=== PATIENT | male | born 1975 | race Two or more races ===

== ENCOUNTER 2016-11-24 23:52 | Emergency (ER) | payer OTHER ==
[~2016-11-24] VITALS: Ht 185.4 cm; Wt 190.5 kg
[2016-11-25 00:10] VITALS: BP 140/86
[2016-11-25] MEDS ORDERED: KETOROLAC TROMETH 60MG/2ML VIAL IM ONE (03:15)
== END 2016-11-25 03:19 | disposition home or self-care (01) ==
LOC: ER 23:52
DX: S93.401A Sprain of unspecified ligament of right ankle, initial encounter (principal); X58.XXXA Exposure to other specified factors, initial encounter; Y93.89 Activity, other specified; Y92.89 Other specified places as the place of occurrence of the external cause; Y99.8 Other external cause status; Z87.81 Personal history of (healed) traumatic fracture
CPT/HCPCS: 96372; 99283; J1885